=== PATIENT | female | born 1935 | race Caucasian/White ===

== ENCOUNTER 2017-02-10 16:09 | Inpatient (IN) | payer MEDICARE ==
--- NOTE | ~2017-02-10 | DS ---
Discharge Summary [facility] [address] [place]. [address] NAME: BHAKTI HAIRSTON : 37 STATUS : DIS IN PAT#: [id number] AGE: 82 ADM/REG DATE : 02/10/17 MR#: [id number] REPORT SERV DATE: 02/15/17 DICTATED BY: MARICRUZ MCGARRY II DATE: 02/14/17 REPORT STATUS : Draft TRANSCRIBED BY: MODL DATE: 02/14/17 ADMISSION DATE: 02/10/2017 DISCHARGE DATE: 02/14/2017 DISCHARGE DIAGNOSES: 1. Community-acquired pneumonia. 2. Acute kidney injury on chronic kidney injury, stage 4. 3. Leukocytosis. 4. History of hypertension. 5. History of gastroesophageal reflux disease. 6. History of hypothyroidism. 7. History of gout. CONSULTS: Ej Ramirez M.D. with Nephrology. BRIEF HISTORY OF PRESENT ILLNESS: The patient is an 82-year-old female with the above history who presented to the [facility] due to cough, congestion, and evidence for possible pneumonia. For detailed history and physical examination, please see Dr. Ma's note from 02/10/2017. HOSPITAL COURSE: After admission, the patient was placed on azithromycin and Rocephin. Her white count was 18.6 on admission. Her urine was unremarkable, and chest x-ray showed an acute infiltrate in the left lung base posteriorly. Blood and sputum cultures were unremarkable, and her white count improved. She is not on oxygen and feeling much better. She was also noted to have a creatinine of 2.42 on admission which trended up to 2.[address]ing back down. Dr. Ramirez involved and recommend the patient to follow up with her regular winder tender Dr. Resendiz in clinic. Otherwise, the patient is currently stable for discharge and will continue Omnicef for another two days. DISCHARGE MEDICATIONS: 1. Allopurinol 200 mg p.o. daily. 2. Lasix 20 mg p.o. daily. 3. [place] 5/325 mg p.o. q.12 hours p.r.n. pain. 4. Synthroid 75 mg p.o. daily. 5. Claritin 10 mg p.o. daily. 6. Lopressor 12.5 mg p.o. b.i.d. 7. Fish oil 2000 mg p.o. daily. 8. Prilosec 20 mg p.o. daily. 9. Vitamin B6 200 mg p.o. daily. 10.Aldactone 25 mg p.o. daily. 11.GenTeal p.r.n. 12.Tylenol p.r.n. 13.Cranberry fruit p.r.n. 14.Albuterol HFA two puffs inhaled q.4h p.r.n. DISCHARGE INSTRUCTIONS: The patient will follow up with her PCP, Dr. Payne in one to two Discharge Summary [address] [address] NAME: BHAKTI HAIRSTON : 37 STATUS : DIS IN PAT#: [id number] AGE: 82 ADM/REG DATE : 02/10/17 MR#: [id number] REPORT SERV DATE: 02/15/17 DICTATED BY: MARICRUZ MCGARRY II DATE: 02/14/17 REPORT STATUS : Draft TRANSCRIBED BY: HUSAM DATE: 02/14/17 weeks. ROSA M/HUSAM Maricruz Mcgarry II, MD / [id number] CC: MD Urbano Adan II, M.D.
--- NOTE | ~2017-02-10 | CN ---
Consultation Report [facility] [address] [place]. [address] NAME: BHAKTI HAIRSTON : 37 STATUS : ADM IN [facility]#: [id number] AGE: 81 ADM/REG DATE : 02/10/17 MR#: [id number] REPORT SERV DATE: 02/11/17 DICTATED BY: EJ RAMIREZ V. DATE: 02/10/17 REPORT STATUS : Draft TRANSCRIBED BY: MODL DATE: 02/10/17 RENAL CONSULT DATE OF CONSULTATION: 02/10/2017 REASON FOR CONSULTATION: Consultation is regarding chronic kidney disease management. HISTORY OF PRESENT ILLNESS: Ms. Hairston is a very pleasant 81-year-old white female , who is followed in our practice for chronic kidney disease by Dr. Kraig Resendiz. She had a creatinine of 3.4 on 01/29/2017 in our office. She has had increasing cough and some hoarseness and went to her primary care physician earlier today. She has had some sputum productive of yellow tinged sputum. She also had a temperature last evening up to 101 degrees Fahrenheit. She denies any dysuria or hematuria. She has had no nausea or vomiting, but does state she has had poor p.o. intake. PAST MEDICAL HISTORY: 1. Hypertension. 2. Chronic kidney disease, stage IV. 3. History of ovarian cancer. 4. Gout. 5. Hypothyroidism. 6. Gastroesophageal reflux disease. PAST SURGICAL HISTORY: 1. Appendectomy in 1997. 2. Parathyroid gland removal. 3. Cataract removal. 4. Total abdominal hysterectomy and bilateral salpingo-oophorectomy with omentectomy for her ovarian cancer in 2012. SOCIAL HISTORY: No tobacco or alcohol. She is . FAMILY HISTORY: Remarkable for hypertension and cancer. ALLERGIES: INCLUDE SULFA DRUGS. HOME MEDICATIONS: Tylenol, allopurinol, Lasix, Lortab, levothyroxine, Claritin, Lopressor, omega-3 fatty acids, Prilosec, vitamin B6, Aldactone, and cranberry. REVIEW OF SYSTEMS: All review of systems are negative except as described above. PHYSICAL EXAMINATION: VITAL SIGNS: Temperature was 97.4, heart rate 99, blood pressure 111/71. GENERAL: She is a pleasant, elderly white female with no increased work of breathing at Consultation Report [facility] [address] [place]. [address] NAME: BHAKTI HAIRSTON : 37 STATUS : ADM IN PAT#: [id number] AGE: 81 ADM/REG DATE : 02/10/17 MR#: [id number] REPORT SERV DATE: 02/11/17 DICTATED BY: EJ RAMIREZ V. DATE: 02/10/17 REPORT STATUS : Draft TRANSCRIBED BY: HUSAM DATE: 02/10/17 rest. HEENT: Pupils equal, round, reactive to light. Sclerae were anicteric. Oropharynx reveals moist mucous membranes. No lesions. NECK: Trachea midline. No thyromegaly. No supraclavicular nodes. No axillary lymph nodes. CHEST: Scattered rhonchi in the bases bilaterally with scattered wheezing. HEART: Regular rate and rhythm. No rub. ABDOMEN: Soft, nondistended. Bowel sounds are physiologic. EXTREMITIES: No clubbing, cyanosis, or edema in lower extremities. SKIN: Warm and dry. No rash or lesions. IMAGING: Chest x-ray by report showed bilateral patchy infiltrates. LABORATORY DATA: White count 18.6, hematocrit 35%, platelet count 239,000. Sodium 139, potassium 3.1, BUN and creatinine of 37 and 2.4. IMPRESSION: A 81-year-old white female with chronic kidney disease that is actually quite stable for her with possible community-acquired pneumonia. No definitive chest x-ray findings suggestive of a pneumonia at this time, but she does have a fair amount of sputum production as witnessed by the sputum container by her bedside. PLAN: 1. I agree with cessation of diuretics for now and gentle IV hydration. 2. Antibiotics per primary team. 3. Repeat PA and lateral chest x-ray tomorrow. 4. We will check urinalysis for now. 5. Reassess renal function panel in the morning. 6. Partners to follow. Thank you for allowing us to participate in the care of this patient. AJIT/HUSAM Ej Ramirez M.D. / [id number] CC: Nadege Vieira M.D.
--- NOTE | ~2017-02-10 | HP ---
History And Physical [address] [place]. [address] NAME: BHAKTI HAIRSTON : 37 STATUS : ADM IN [facility]#: [id number] AGE: 81 ADM/REG DATE : 02/10/17 MR#: [id number] REPORT SERV DATE: 02/10/17 DICTATED BY: NERY LEMON DATE: 02/10/17 REPORT STATUS : Draft TRANSCRIBED BY: MODL DATE: 02/10/17 DATE OF ADMISSION: 02/10/2017 CHIEF COMPLAINT: Cough, congestion, and fever for one day with upper respiratory symptoms starting on Friday. HISTORY OF PRESENT ILLNESS: This is a naren 81 years old female. She has a history of chronic kidney disease stage 4, history of hypertension, GERD, history of gout. She has a history of ovarian cancer, status post total abdominal hysterectomy and bilateral salpingo- oophorectomy in 2013 treated with chemotherapy by Dr. Ceja and cancer free, presenting today to [facility] sent from the primary care provider's office after she has been evaluated with complaints of upper respiratory infection, sore throat, as well as subjective fever, cough, and minimal scant sputum production started on Friday. The patient started with an upper respiratory infection with congestion, sore throat, as well as subjective fever, and it went progressively worse to develop cough with productive yellowish scant sputum as well as fever last night up to 101. She went today to her primary care provider's office, where CBC has been [place] [address]. The patient did not have any chest pain, no more increased shortness of breath, no PND or orthopnea. She did not have any nausea or vomiting. No diarrhea or constipation. She has not complained of any increased urinary frequency or urgency. She has not had any hematemesis, melena, or hematochezia. No other complaints. The patient has been transferred to [facility] for further evaluation and treatment of possible pneumonia. Again, the patient has not had any recent sick contacts nor she has had any recent hospitalizations. PAST MEDICAL HISTORY: Significant for hypertension, GERD, gout, hypothyroidism, and stage 4 chronic kidney disease. PAST SURGICAL HISTORY: Includes appendectomy in 1997. She had one parathyroid gland removal, cataract surgery, hysterectomy, bilateral salpingo-oophorectomy, and omentectomy for her ovarian cancer in 2012. SOCIAL HISTORY: She denies tobacco, alcohol, or IV drugs. FAMILY HISTORY: Significant for cancer and hypertension. ALLERGIES: TO SULFA DRUGS. MEDICATIONS: At home include Tylenol, allopurinol, Lasix, [place], GenTeal solution, levothyroxine, Claritin, Lopressor, omega-3 fatty acids, Prilosec, vitamin B6, Aldactone, and cranberry fruit. REVIEW OF SYSTEMS: A 14-point review of systems has been obtained and pertinent positive has been listed into the history of present illness. Otherwise, negative except those underlying above. History And Physical [address] [address] NAME: BHAKTI HAIRSTON : 37 STATUS : ADM IN [facility]#: [id number] AGE: 81 ADM/REG DATE : 02/10/17 MR#: [id number] REPORT SERV DATE: 02/10/17 DICTATED BY: NERY LEMON DATE: 02/10/17 REPORT STATUS : Draft TRANSCRIBED BY: HUSAM DATE: 02/10/17 OBJECTIVE: VITAL SIGNS: She is afebrile, blood pressure 117/71, heart rate 99, respiratory rate 18, saturating 97% on room air. GENERAL: She is a naren, well-developed, well-nourished female, well stated for her age, in no acute distress. She is alert and oriented x3. She is nonfocal. She follows all her commands appropriately. HEENT: Shows pupils equal, round, reactive to light. Extraocular movements intact. NECK: No JVD. No lymphadenopathy. No thyromegaly appreciated. CHEST: Eval shows bilateral air entry. Clear anteroposterior. Scattered rhonchi. No wheezes or crackles appreciated. CARDIOVASCULAR: She has regular rate and rhythm. S1, S2 positive. No S3, no S4. No murmurs, rubs, or gallops appreciated. ABDOMEN: Soft with positive bowel sounds. Nontender. No guarding. No rebound. EXTREMITIES: No clubbing, cyanosis, or edema. LABORATORY DATA: There are no current labs available. ASSESSMENT: This is a 81 years old female with: 1. Likely community-acquired pneumonia with upper respiratory infections. 2. Possible acute on chronic kidney disease stage 4. 3. History of hypertension. 4. History of gastroesophageal reflux disease. 5. History of hypothyroidism. 6. History of gout. 7. History of prior ovarian cancer, status post hysterectomy and bilateral salpingo- oophorectomy. PLAN: 1. The patient is going to be admitted to Hospitalist Service. We are going to place her on oxygen. We are going to check her labs, check blood culture, sputum Gram stain and culture. Check a procalcitonin level, chest x-ray, as well as urine Legionella and pneumococcal antigen, influenza screen as well. We are going to place her on broad- spectrum antibiotics, provide vigorous IV hydration, and treat her clinically, as well as bronchodilator protocol. We will repeat a chest x-ray, PA and lateral in the morning. 2. Possible acute on chronic kidney disease. Check UA and urine culture. Hold the diuretics for today. We are going to consult Dr. Resendiz, the patient's fish trapper, per patient and family request. As well, strict I's and O's. Strict daily weights. 3. History of hypertension. Continue her home medication p.r.n. hydralazine as needed. 4. History of hypothyroidism. We will continue her home medications and check a TSH and a free T4. 5. History of hyperlipidemia. We will continue her home medications. 6. History of gout. We will continue her home medication. 7. History of GERD. We will continue her home medication. We will provide reasonable pain and nausea control as well as GI and DVT prophylaxis. This has been discussed extensively with the patient as well as the patient's . All the questions have been answered in full. Further workup and recommendation pending above. History And Physical [address] [address] NAME: BHAKTI HAIRSTON : 37 STATUS : ADM IN PAT#: [id number] AGE: 81 ADM/REG DATE : 02/10/17 MR#: [id number] REPORT SERV DATE: 02/10/17 DICTATED BY: NERY LEMON DATE: 02/10/17 REPORT STATUS : Draft TRANSCRIBED BY: HUSAM DATE: 02/10/17 TRIPP/HUSAM Nery Lemon M.D. / [id number] CC: Nadege Vieira M.D.
[~2017-02-10 16:09] MED LIST: ACET500CAP PO; ANTI DEPRESSANT; ATV.5 PO; CLARIT10 PO; COMP10B PO; CRANBERRY1 TAB PO; CRANBERRY300 MG PO; FISH-EPA1000 MG PO; GENTEAL 15 ML O15 ML OPH; GENTEAL MILD0.2 % OP; L20 PO; L40 PO; LEVAQUIN750 MG PO; LEVOTHROID75 MCG PO; LEVOTHYROXIN25 MCG PO; LEVOTHYROXIN75 MCG PO; LIPITOR20 PO; LOP25 PO; LOP50 PO; LORTAB 5 PO; NASONEX NAS; NORCO1 TA1 PO; PCET PO; PRILO PO; PROZAC PO; SPIRO25 PO; T PO; TYLENOL ARTH650 MG PO; VITAMIN B-625 MG PO; VYTORIN 10/10 T1 TAB PO; Z100 PO; ZANTAC 150 PO; ZANTAC150 MG PO
[2017-02-10] MEDS ORDERED: LOP25 PO (16:38)
[2017-02-10] MEDS ORDERED: Z100 PO (16:38)
[2017-02-10] MEDS ORDERED: L20 PO (16:39)
[2017-02-10] MEDS ORDERED: CLARIT10 PO (16:39)
[2017-02-10] MEDS ORDERED: SPIRO25 PO (16:39)
[2017-02-10] MEDS ORDERED: PRILO PO (16:39)
[2017-02-10] MEDS ORDERED: LEVOTHYROXIN75 MCG PO (16:39)
[2017-02-10] MEDS ORDERED: ACET500CAP PO (16:40)
[2017-02-10] MEDS ORDERED: NORCO1 TA1 PO (16:40)
[2017-02-10] MEDS ORDERED: GENTEAL OPH (16:40)
[2017-02-10] MEDS ORDERED: CRANBERRY FRUIT PO (16:41)
[2017-02-10] MEDS ORDERED: FISH-EPA1000 MG PO (16:41)
[2017-02-10] MEDS ORDERED: VIT B-SIX 50 MG50 MG PO (16:41)
[2017-02-10 19:01] LABS: BASOPHILS 0.2 %; BASOPHILS ABSOLUTE 0.03 10/3/uL (0.0-0.16); EOSINOPHILS 0.1 %; EOSINOPHILS ABSOLUTE 0.02 10/3/uL (0.0-0.53); IMMATURE GRANULOCYTES 0.7 %; IMMATURE GRANULOCYTES ABSOLUTE 0.13 10/3/uL (0.0-0.11); LYMPHOCYTES 7.7 %; LYMPHOCYTES ABSOLUTE 1.43 10/3/uL (0.67-4.30); MEAN CORPUS HGB CONC 33.4 g/dL (32.0-36.0); MEAN CORPUSCULAR HEMOGLOB 33.5 pg (26.0-34.0); MEAN PLATELET VOLUME 10.8 fL (9.2-13.0); MONOCYTES 5.8 %; MONOCYTES ABSOLUTE 1.08 10/3/uL (0.21-1.20); NEUTROPHILS 85.5 %; NEUTROPHILS ABSOLUTE 15.87 10/3/uL (2.02-8.40); PLATELET COUNT 239 10/3/uL (150-400)
[2017-02-10 19:03] LABS: HEMOGLOBIN 11.7 g/dL (12.0-16.0); MANUAL DIFF NO %; MEAN CORPUSCULAR VOLUME 100.3 fL (80-100); RBC DISTRIBUTION WIDTH 14.1 % (12.0-16.0); RED CELL COUNT 3.49 10/6/uL (4.0-5.6); WHITE BLOOD CELLS 18.6 10/3/uL (4.5-10.5)
[2017-02-10 19:24] LABS: INFLUENZA A SCREEN NEGATIVE (NEGATIVE); INFLUENZA B SCREEN NEGATIVE (NEGATIVE)
[2017-02-10 19:25] LABS: ALKALINE PHOSPHATASE 114 U/L (45-117); CALCIUM, SERUM 8.4 MG/DL (8.5-10.4); CHLORIDE, SERUM 104 MMOL/L (96-112); CO2 (CARBON DIOXIDE) 21 MMOL/L (24-34); FREE T4 1.29 NG/DL (0.76-1.46); GLUCOSE, SERUM 100 MG/DL (60-99); PHOSPHORUS, SERUM 2.6 MG/DL (2.5-4.5); POTASSIUM, SERUM 3.1 MMOL/L (3.5-5.3); SGOT(AST) 15 U/L (5-40); SGPT(ALT) 22 U/L (5-65); SODIUM, SERUM 139 MMOL/L (135-148); TOTAL BILIRUBIN 0.6 MG/DL (0-1.2); TOTAL PROTEIN 6.4 G/DL (6.0-8.5); TROPONIN I <0.02 NG/ML (<0.05)
[2017-02-10 19:26] LABS: A/G RATIO 0.7 (0.7-1.9); ACETAMINOPHEN LEVEL (TYLENOL) < 2.0 MCG/ML (10.0-20.0); ALBUMIN 2.6 G/DL (3.5-5.0); ALCOHOL < 10 MG/DL (0); BUN (BLOOD UREA NITROGEN) 37 MG/DL (6-23); CREATININE 2.42 MG/DL (0.55-1.02); GFR AFRICAN AMERICAN 21 ML/MIN (>=60); GFR NON AFRICAN AMERICAN 18 ML/MIN (>=60); GLOBULIN 3.8 G/DL (2.5-4.1); SALICYLATE < 1.7 MG/DL (-); ULTRASENSITIVE TSH 0.444 MCIU/ML (0.358-3.740)
[2017-02-10 19:53] LABS: PROCALCITONIN 0.59 ng/mL (<0.5)
[2017-02-11 03:04] LABS: ASCORBIC ACID (UR NOT ORDER) NEG (NEG); BILIRUBIN, URINE NEGATIVE (NEG); KETONE, URINE NEGATIVE (NEG); LEUKOCYTE ESTERASE(NOT OR NEG (NEG); WBC (NOT ORDERED) (RFLEX) 3 (0-5)
[2017-02-11 07:17] LABS: BASOPHILS 0.1 %; BASOPHILS ABSOLUTE 0.03 10/3/uL (0.0-0.16); EOSINOPHILS 0.7 %; EOSINOPHILS ABSOLUTE 0.15 10/3/uL (0.0-0.53); HEMATOCRIT 31.9 % (36.0-48.0); HEMOGLOBIN 10.8 g/dL (12.0-16.0); IMMATURE GRANULOCYTES 0.5 %; IMMATURE GRANULOCYTES ABSOLUTE 0.11 10/3/uL (0.0-0.11); LYMPHOCYTES 11.7 %; LYMPHOCYTES ABSOLUTE 2.41 10/3/uL (0.67-4.30); MANUAL DIFF NO %; MEAN CORPUS HGB CONC 33.9 g/dL (32.0-36.0); MEAN CORPUSCULAR HEMOGLOB 34.3 pg (26.0-34.0); MEAN CORPUSCULAR VOLUME 101.3 fL (80-100); MEAN PLATELET VOLUME 10.9 fL (9.2-13.0); MONOCYTES 5.4 %; MONOCYTES ABSOLUTE 1.12 10/3/uL (0.21-1.20); NEUTROPHILS 81.6 %; NEUTROPHILS ABSOLUTE 16.77 10/3/uL (2.02-8.40); PLATELET COUNT 231 10/3/uL (150-400); RBC DISTRIBUTION WIDTH 14.2 % (12.0-16.0); RED CELL COUNT 3.15 10/6/uL (4.0-5.6); WHITE BLOOD CELLS 20.6 10/3/uL (4.5-10.5)
[2017-02-11 07:28] LABS: BUN (BLOOD UREA NITROGEN) 36 MG/DL (6-23); CHLORIDE, SERUM 109 MMOL/L (96-112); CO2 (CARBON DIOXIDE) 21 MMOL/L (24-34); CREATININE 2.55 MG/DL (0.55-1.02); GFR AFRICAN AMERICAN 20 ML/MIN (>=60); GFR NON AFRICAN AMERICAN 17 ML/MIN (>=60); GLUCOSE, SERUM 80 MG/DL (60-99); POTASSIUM, SERUM 3.8 MMOL/L (3.5-5.3); SODIUM, SERUM 142 MMOL/L (135-148)
[2017-02-12 05:30] LABS: BASOPHILS 0.1 %; BASOPHILS ABSOLUTE 0.02 10/3/uL (0.0-0.16); EOSINOPHILS 0.6 %; EOSINOPHILS ABSOLUTE 0.09 10/3/uL (0.0-0.53); HEMATOCRIT 27.8 % (36.0-48.0); HEMOGLOBIN 9.3 g/dL (12.0-16.0); IMMATURE GRANULOCYTES 0.5 %; IMMATURE GRANULOCYTES ABSOLUTE 0.08 10/3/uL (0.0-0.11); LYMPHOCYTES ABSOLUTE 1.59 10/3/uL (0.67-4.30); MANUAL DIFF NO %; MEAN CORPUS HGB CONC 33.5 g/dL (32.0-36.0); MEAN CORPUSCULAR HEMOGLOB 33.8 pg (26.0-34.0); MEAN CORPUSCULAR VOLUME 101.1 fL (80-100); MEAN PLATELET VOLUME 10.5 fL (9.2-13.0); MONOCYTES 4.5 %; MONOCYTES ABSOLUTE 0.71 10/3/uL (0.21-1.20); NEUTROPHILS 84.3 %; NEUTROPHILS ABSOLUTE 13.41 10/3/uL (2.02-8.40); PLATELET COUNT 214 10/3/uL (150-400); RBC DISTRIBUTION WIDTH 14.4 % (12.0-16.0); RED CELL COUNT 2.75 10/6/uL (4.0-5.6); WHITE BLOOD CELLS 15.9 10/3/uL (4.5-10.5)
[2017-02-12 05:44] LABS: ALBUMIN 2.2 G/DL (3.5-5.0); BUN (BLOOD UREA NITROGEN) 36 MG/DL (6-23); CHLORIDE, SERUM 114 MMOL/L (96-112); CREATININE 2.62 MG/DL (0.55-1.02); GFR AFRICAN AMERICAN 19 ML/MIN (>=60); GFR NON AFRICAN AMERICAN 17 ML/MIN (>=60); PHOSPHORUS, SERUM 3.1 MG/DL (2.5-4.5); POTASSIUM, SERUM 3.9 MMOL/L (3.5-5.3); SODIUM, SERUM 143 MMOL/L (135-148)
[2017-02-12 05:59] LABS: CO2 (CARBON DIOXIDE) 13 MMOL/L (24-34); GLUCOSE, SERUM 102 MG/DL (60-99)
[2017-02-12 14:53] LABS: CALCIUM, SERUM 7.9 MG/DL (8.5-10.4); CHLORIDE, SERUM 112 MMOL/L (96-112); CREATININE 2.55 MG/DL (0.55-1.02); GFR AFRICAN AMERICAN 20 ML/MIN (>=60); GFR NON AFRICAN AMERICAN 17 ML/MIN (>=60); GLUCOSE, SERUM 92 MG/DL (60-99); POTASSIUM, SERUM 3.5 MMOL/L (3.5-5.3); SODIUM, SERUM 146 MMOL/L (135-148)
[2017-02-12 14:54] LABS: BUN (BLOOD UREA NITROGEN) 32 MG/DL (6-23); CO2 (CARBON DIOXIDE) 21 MMOL/L (24-34)
[2017-02-13 08:59] LABS: BASOPHILS 0.2 %; BASOPHILS ABSOLUTE 0.03 10/3/uL (0.0-0.16); EOSINOPHILS 3.2 %; EOSINOPHILS ABSOLUTE 0.53 10/3/uL (0.0-0.53); HEMATOCRIT 30.2 % (36.0-48.0); HEMOGLOBIN 9.8 g/dL (12.0-16.0); IMMATURE GRANULOCYTES 1.4 %; IMMATURE GRANULOCYTES ABSOLUTE 0.23 10/3/uL (0.0-0.11); LYMPHOCYTES 9.5 %; LYMPHOCYTES ABSOLUTE 1.59 10/3/uL (0.67-4.30); MEAN CORPUS HGB CONC 32.5 g/dL (32.0-36.0); MEAN CORPUSCULAR HEMOGLOB 32.5 pg (26.0-34.0); MEAN PLATELET VOLUME 10.2 fL (9.2-13.0); MONOCYTES ABSOLUTE 0.67 10/3/uL (0.21-1.20); NEUTROPHILS 81.7 %; NEUTROPHILS ABSOLUTE 13.61 10/3/uL (2.02-8.40); PLATELET COUNT 271 10/3/uL (150-400); RBC DISTRIBUTION WIDTH 14.6 % (12.0-16.0); RED CELL COUNT 3.02 10/6/uL (4.0-5.6); WHITE BLOOD CELLS 16.7 10/3/uL (4.5-10.5)
[2017-02-13 09:00] LABS: MANUAL DIFF NO %
[2017-02-13 09:16] LABS: ALBUMIN 2.4 G/DL (3.5-5.0); CALCIUM, SERUM 8.6 MG/DL (8.5-10.4); CHLORIDE, SERUM 113 MMOL/L (96-112); CO2 (CARBON DIOXIDE) 20 MMOL/L (24-34); CREATININE 2.45 MG/DL (0.55-1.02); GFR AFRICAN AMERICAN 21 ML/MIN (>=60); GFR NON AFRICAN AMERICAN 18 ML/MIN (>=60); GLUCOSE, SERUM 95 MG/DL (60-99); PHOSPHORUS, SERUM 2.4 MG/DL (2.5-4.5); SODIUM, SERUM 143 MMOL/L (135-148)
[2017-02-13 09:17] LABS: BUN (BLOOD UREA NITROGEN) 28 MG/DL (6-23); POTASSIUM, SERUM 4.3 MMOL/L (3.5-5.3)
[2017-02-14 04:42] LABS: HEMATOCRIT 28.2 % (36.0-48.0); HEMOGLOBIN 9.3 g/dL (12.0-16.0); MEAN CORPUSCULAR HEMOGLOB 33.1 pg (26.0-34.0); MEAN CORPUSCULAR VOLUME 100.4 fL (80-100); MEAN PLATELET VOLUME 10.6 fL (9.2-13.0); PLATELET COUNT 284 10/3/uL (150-400); RBC DISTRIBUTION WIDTH 14.6 % (12.0-16.0); RED CELL COUNT 2.81 10/6/uL (4.0-5.6); WHITE BLOOD CELLS 10.7 10/3/uL (4.5-10.5)
[2017-02-14 04:50] LABS: BUN (BLOOD UREA NITROGEN) 25 MG/DL (6-23); CALCIUM, SERUM 8.3 MG/DL (8.5-10.4); CHLORIDE, SERUM 113 MMOL/L (96-112); CO2 (CARBON DIOXIDE) 20 MMOL/L (24-34); CREATININE 2.39 MG/DL (0.55-1.02); GFR AFRICAN AMERICAN 21 ML/MIN (>=60); GFR NON AFRICAN AMERICAN 19 ML/MIN (>=60); GLUCOSE, SERUM 94 MG/DL (60-99); POTASSIUM, SERUM 4.1 MMOL/L (3.5-5.3); SODIUM, SERUM 146 MMOL/L (135-148)
[2017-02-14 04:51] LABS: PHOSPHORUS, SERUM 4.4 MG/DL (2.5-4.5)
[2017-02-14 05:07] LABS: MANUAL DIFF YES %
[2017-02-14 05:17] LABS: BAND NEUTROPHILS 1 %; EOSINOPHILS 2 %; EOSINOPHILS ABSOLUTE (CALC) 0.21 10/3/uL (0.0-0.53); IMMATURE GRANS ABSOLUTE (CALC) 0.11 10/3/uL (0.0-0.11); LYMPHOCYTES 6 %; LYMPHOCYTES ABSOLUTE (CALC) 0.64 10/3/uL (0.67-4.30); METAMYELOCYTES 1 %; MONOCYTES 5 %; MONOCYTES ABSOLUTE (CALC) 0.54 10/3/uL (0.21-1.20); PLATELET ESTIMATE ADQ (ADEQUATE); RBC MORPHOLOGY NORM (NORMAL); SEGMENTED NEUTROPHIL (0) 85 %; TOTAL NUCLEATED CELLS 100
[2017-02-14] MEDS ORDERED: SODBICAR10 PO (16:18)
[2017-02-14] MEDS ORDERED: VENTOLIN HFA INH (16:24)
[2017-08-19] MEDS ORDERED: LEVOTHYROXIN100 MCG PO (12:13)
[2017-08-19] MEDS ORDERED: VYTORIN 10/10 T1 TAB PO (12:17)
== END 2017-02-14 16:45 | disposition home or self-care (01) | DRG 194 ==
LOC: 6NO 16:09
PROVIDERS: Internal Medicine; Internal Medicine Nephrology
DX: J18.9 Pneumonia, unspecified organism (principal); N17.9 Acute kidney failure, unspecified; N18.4 Chronic kidney disease, stage 4 (severe); E87.2 Acidosis; I12.9 Hypertensive chronic kidney disease with stage 1 through stage 4 chronic kidney disease, or unspecified chronic kidney disease; E03.9 Hypothyroidism, unspecified; M10.9 Gout, unspecified; Z90.710 Acquired absence of both cervix and uterus; Z88.2 Allergy status to sulfonamides; Z85.43 Personal history of malignant neoplasm of ovary; Z82.49 Family history of ischemic heart disease and other diseases of the circulatory system
CPT/HCPCS: 71010; 71020; 74000; 80048; 80053; 80069; 80307; 81001; 83036; 83605; 83615; 83735; 84100; 84145; 84439; 84443; 84484; 85025; 87040; 87070; 87205; 87449; 87804; 87880; 93005; 94640; A9270-GY; J0456; P9047